=== PATIENT | male | born 1975 | race Caucasian/White ===

== ENCOUNTER 2018-10-13 15:56 | Emergency (ER) | payer OTHER, BC, SELFPAY ==
[2018-10-13 16:03] VITALS: BP 137/76; PULSE 76; RESP 15; TEMP 37.1; O2SAT 97; BMI 32.6
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
[2018-10-13 17:35] VITALS: BP 115/64; PULSE 67; RESP 16; O2SAT 96
== END 2018-10-13 17:36 | disposition home or self-care (01) ==
PROVIDERS: Emergency Provider Emergency Medicine; PCP Family Medicine
DX: S16.1XXA Strain of muscle, fascia and tendon at neck level, initial encounter (principal); V89.2XXA Person injured in unspecified motor-vehicle accident, traffic, initial encounter
CPT/HCPCS: 72125; 99283; 99284

== ENCOUNTER → 2018-10-15 15:02 | Outpatient (CLI) | payer OTHER, BC, SELFPAY ==
--- NOTE | 2018-10-15 | DI.RAD.S_ITS ---
PROCEDURE: XR LUMBAR SPINE 2-3V INDICATIONS: LOW BACK PAIN TECHNIQUE: 3 views of the lumbar spine were acquired. COMPARISON: None. FINDINGS: Bones: No fracture or focal osseous destruction. Multilevel degenerative endplate sclerosis and spurring. Diffuse facet arthropathy. Mild uniform diffuse narrowing of the lumbar disc spaces. Straightening of the normal lordotic curvature. Trace retrolisthesis of L4 on L5. Soft tissues: Overlying bowel gas pattern is normal. No suspicious soft tissue calcifications. IMPRESSION: Mild diffuse lumbar spondylosis and facet arthropathy. Dictated by: Gregorio Stein M.D. on 10/15/2018 at 16:06 Approved by: Gregorio Stein M.D. on 10/15/2018 at 16:07
== END ==
PROVIDERS: PCP Family Medicine; Visit Provider Family Medicine
DX: M54.5 Low back pain (principal); M47.816 Spondylosis without myelopathy or radiculopathy, lumbar region
CPT/HCPCS: 72100

== ENCOUNTER 2018-10-19 19:48 | Emergency (ER) | payer OTHER, BC, SELFPAY ==
[2018-10-19 19:52] VITALS: BP 146/82; PULSE 72; RESP 18; TEMP 36.6; O2SAT 97; BMI 34.0
[2018-10-19] MEDS: LIDOCAINE PATCH 1 EACH ADH..PATCH TOP (20:56)
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
[2018-10-19 21:30] VITALS: BP 138/80; PULSE 76; RESP 16; TEMP 36.7; O2SAT 98
== END 2018-10-19 21:51 | disposition home or self-care (01) ==
PROVIDERS: Emergency Provider Nurse Practitioner Family; PCP Family Medicine
DX: M54.41 Lumbago with sciatica, right side (principal)
CPT/HCPCS: 99282; 99283

== ENCOUNTER → 2018-12-25 10:24 | Outpatient (CLI) | payer BC, SELFPAY ==
--- NOTE | 2018-12-25 | DI.RAD.S_ITS ---
PROCEDURE: XR TIBIA FUBULA RT 2V INDICATIONS: RIGHT LEG PAIN TECHNIQUE: 2 views of the tibia and fibula were acquired. COMPARISON: None. FINDINGS: Bones: No fractures or dislocations. No suspicious bony lesions. There is a small corticated ossicle distal to the lateral malleolus, likely sequelae of old injury. Soft tissues: No suspicious soft tissue calcifications or masses. IMPRESSION: No acute fracture or dislocation. Dictated by: Gabe Hagan M.D. on 12/25/2018 at 17:08 Approved by: Gabe Hagan M.D. on 12/25/2018 at 17:09
== END ==
PROVIDERS: PCP Family Medicine; Visit Provider Family Medicine
DX: M79.661 Pain in right lower leg (principal)
CPT/HCPCS: 73590

== ENCOUNTER → 2019-02-11 08:28 | Outpatient (CLI) | payer BC, SELFPAY ==
--- NOTE | 2019-02-11 08:33 | DI.RAD.S_ITS ---
PROCEDURE: XR WRIST RT MIN 3V INDICATIONS: r wrist pain TECHNIQUE: 4 views of the wrist were acquired. COMPARISON: [facility], [place], XR HAND RT MIN 3V, 02/11/2019, 8:32. [facility], [place], FINGER RT, 06/01/2016, 13:31. FINDINGS: Bones: No fractures or dislocations. No suspicious bony lesions. Scaphoid view: The scaphoid appears intact without acute fracture. Faint subchondral lucencies likely related to degenerative change. Scapholunate interval is maintained. Soft tissues: No suspicious soft tissue calcifications. IMPRESSION: Right wrist without acute osseous abnormalities. If there is persistent clinical concern for occult fracture given adequate mechanism of injury, consider repeat imaging in 10-14 days. Dictated by: Talon Siegel M.D. on 02/11/2019 at 7:55 Approved by: Talon Siegel M.D. on 02/11/2019 at 7:57
--- NOTE | 2019-02-11 08:33 | DI.RAD.S_ITS ---
PROCEDURE: XR HAND RT MIN 3V INDICATIONS: r hand pain TECHNIQUE: 3 views of the hand(s) acquired. COMPARISON: None. FINDINGS: Bones: Mild soft tissue swelling of the right hand without underlying fractures or dislocations. Carpal bones are normally aligned. No suspicious bony lesions. Soft tissues: No suspicious soft tissue calcifications. IMPRESSION: Mild soft tissue swelling of the right hand without associated fracture or dislocation. If there is persistent clinical concern for occult fracture given adequate mechanism of injury, consider repeat imaging in 10-14 days. Dictated by: Talon Siegel M.D. on 02/11/2019 at 7:53 Approved by: Talon Siegel M.D. on 02/11/2019 at 7:54
== END ==
PROVIDERS: PCP Family Medicine; Visit Provider Physician Assistant
DX: M79.641 Pain in right hand (principal); M25.531 Pain in right wrist; M79.89 Other specified soft tissue disorders
CPT/HCPCS: 73110; 73130

== ENCOUNTER → 2020-09-04 08:27 | Outpatient (CLI) | payer BC, SELFPAY ==
[2020-09-04] MEDS: COVID-19 VACC, Ad26(JANSSEN)/PF 0.5 ML IM (08:32)
== END ==
PROVIDERS: PCP Family Medicine; Visit Provider Internal Medicine
DX: Z23 Encounter for immunization (principal)
CPT/HCPCS: 0031A; 91303